=== PATIENT | male | born 1935 | race Caucasian/White ===

== ENCOUNTER 2018-12-02 08:07 | Observation (INO) ==
[2018-12-02] MEDS ORDERED: LOVENOX SUBQ SCH (08:30)
[2018-12-02 09:28] LABS: BASO# 0.02 X1000 (0.0-0.2); BASO% 0.4 % (0.0-0.8); EOS# 0.12 X1000 (0.0-0.7); EOS% 2.7 % (0.0-10.0); HEMATOCRIT 37.2 % (42.0-52.0); HEMOGLOBIN 12.4 g/dL (14.0-18.0); IMM GRAN# 0.02 X1000 (0.0-0.04); IMM GRAN% 0.4 % (0.0-0.5); LYMPH# 1.09 X1000 (1.2-3.4); LYMPH% 24.5 % (20.5-51.1); MCH 31.8 PG (27-31); MCHC 33.3 g/dL (33-37); MCV 95.4 FL (81-99); MONO# 0.36 X1000 (0.11-0.59); MONO% 8.1 % (1.7-9.3); MPV 10.2 FL (7.4-10.4); NEUT# 2.84 X1000 (1.4-6.5); NEUT% 63.9 % (42.2-75.2); PLT 194 X1000 (130-400); RDW 13.4 % (11.5-14.5); WBC 4.45 X1000 (4.8-10.8)
[2018-12-02 09:52] LABS: AGAP 11; BUN 11 mg/dL (8-22); CALCIUM 8.3 mg/dL (8.8-10.2); CHLORIDE 100 mmol/L (98-107); COSMO 281; CREATININE 0.8 mg/dL (0.7-1.2); ESTIMATED GFR > 60; GLUCOSE 178 mg/dL (70-104); MAGNESIUM 1.7 mg/dL (1.5-2.7); SODIUM 139 mmol/L (136-145); TCO2 28 mmol/L (25-35)
[2018-12-02 10:48] LABS: SED RATE 10 mm/hr (0-15)
[2018-12-02] MEDS: GLUCOPHAGE PO SCH ×2 (12:48→23:19)
[2018-12-02] MEDS: NAMENDA PO SCH ×2 (12:49→23:19)
[2018-12-02] MEDS: VASOTEC PO SCH (13:12)
[2018-12-02] MEDS: HYDROCHLOROTHIAZIDE PO SCH (13:12)
[2018-12-02] MEDS: ZOLOFT PO SCH (13:12)
--- NOTE | 2018-12-02 14:39 | CONSULTATION ---
DATE OF CONSULTATION: 12/02/2018 Mr. Monk is 82 years old and he has progressive cognitive impairment, gait difficulty, falling. I saw Mr. Monk once in my office 10/21/2014. He had significant cognitive impairment then with history that he had not tolerated donepezil because of nightmares. We started him on rivastigmine patch and he seemed to tolerate the 4.6 mg daily dose. He was lost to my followup shortly after that. Today, reports not sure when or why rivastigmine was stopped. Memantine was added and does not recall how long he has been taking memantine. I believe his memantine dose has been 10 mg b.i.d. Memory has continued to fail. There has been gradual downhill course with cognitive function over the last several years. He has chronic gait difficulty which has been worse and worse to the point reports he can hardly walk at all and looks like he is about to fall all the time. He has a little bit of urinary dribbling, but not ciarra incontinence. He fell a few months ago. There was minor head injury but no altered consciousness then. Workup then included CT scan 09/30/2018 without contrast showing evidence of scalp contusion and ventriculomegaly. The ventriculomegaly is a little bit more prominent than was seen on the last CT scan done 2012. On my view, comparing the 2012 and 2018 scans, the subcortical atrophy may be a little bit more prominent than the cortical atrophy but both have progressed significantly over that 6 year time frame. Computer record shows brain MRI with and without contrast 08/28/2012 showing ventriculomegaly but no subependymal CSF. Computer record this admission shows home medicines have been enalapril/hydrochlorothiazide 10/25 daily, memantine uncertain dose probably 10 mg b.i.d., metformin 500 mg b.i.d., sertraline 100 mg daily. Those medicines have been continued here. He has been afebrile. Heart rate is mid 50s. Blood pressures have been 160s/60s-80s. Lab work shows WBC 4450, mild anemia, platelet count 194,000, blood sugar 178, calcium 8.3, nothing else abnormal on the chemistry profile. On exam, Mr. Monk is awake, alert, attentive. He answered questions appropriately but sometimes incorrectly. He could not name the president, the month or the day of the week. He did identify the hospital by name correctly. He could not tell me anything on his lunch plate which was in front of him until just a few seconds before I asked. I did not test his cognitive function further. Head and neck are unremarkable. Visual martinez are full tested grossly by confrontational finger counting. Extraocular movements are good laterally and slightly diminished in upgaze typical for age. Facial motility is diminished bilaterally but symmetric. Gag is intact. Tongue is midline. Hearing is fair. Shoulder shrug is equal. Strength is normal in the arms and legs. He did well on [id number] testing bilaterally. Tone is symmetric in the limbs. I did not test his gait. Plantar response is silent bilaterally. IMPRESSION: Longstanding cognitive impairment with typical progression, more recent unsteady gait also progressing, minimal bladder control problems. These features are consistent with normal pressure hydrocephalus, but the chronology is not typical. The imaging shows ventriculomegaly with some progression over these several years, but the cortical atrophy appears to be progressing along with the subcortical atrophy. There was not subependymal CSF noted on prior MRI. I discussed large volume CSF drainage via LP with patient and . I don't think that is urgent. We might learn more by performing this as an outpatient so that we can better compare his level of function prior to LP and after LP. At this point, I suspect he does not have normal- pressure hydrocephalus. I would continue memantine. If he did not have significant adverse effect with prior trial, I would consider carefully trying cholinesterase inhibitor again. I encouraged him not to be up without help. I do not have any other suggestion right now. Thanks for asking Neurology to see Mr. Monk. cc: MD Esdras Aparicio III, MD MTDD
[2018-12-02 17:35] LABS: URINE SOURCE CLEAN CATCH
[2018-12-02 17:39] LABS: BILIRUBIN URINE NEGATIVE (NEGATIVE); BLOOD URINE NEGATIVE (NEGATIVE); COLOR YELLOW; GLUCOSE URINE NEGATIVE (NEGATIVE); KETONE URINE NEGATIVE (NEGATIVE); LEUKOCYTES URINE NEGATIVE (NEGATIVE); NITRITE URINE NEGATIVE (NEGATIVE); PH URINE 7.5; PROTEIN URINE NEGATIVE (NEGATIVE); SP GRAVITY URINE 1.017; TURBIDITY URINE CLEAR (CLEAR); UR EPITHELIAL CELLS <10 /HPF (<10); URINE BACTERIA NEGATIVE /HPF; URINE RBC <10 /HPF (<10); URINE WBC <10 /HPF (<10); UROBILINOGEN URINE NORMAL (NORMAL)
--- NOTE | 2018-12-02 22:33 | HISTORY AND PHYSICAL ---
CHIEF COMPLAINT: 1. Worsening of memory. 2. Frequent falls. 3. Losing balance. 4. Incontinence of urine. HISTORY OF PRESENT ILLNESS: He is an 82-year-old white gentleman initially presented to my office on 10/27/2018. In between, he was seen in the emergency room, also walk-in clinic with losing balance, not able to do any activities of daily living. He has progression of dementia as well. Apparently, the patient was seen in the emergency room on 09/30/2018 as well as several times in the walk-in clinic. He had multiple falls, having shoulder injury, back injury. Prior to this, a year ago he was driving on his own, going to breakfast with his friends, and now he is pretty much confined to the house. 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 CT scan showed enlarged ventricle. At this time, whether it is ex-vacuo from the atrophic changes versus normal-pressure hydrocephalus. He used to see Dr. Beltran. He had some type of TIA symptoms back in 2012. Basically, I referred as an outpatient to see Dr. Joe as well as a surgical neurosurgical consult for the evaluation of normal pressure hydrocephalus. I did discuss with the to prevent the fall precautions. She called several times, the appointments were delayed. He is not able to walk and she keeps on insisting to be admitted and transferred to [facility]. The patient was seen in my office on November 24. We did perform the mini-mental status exam, it is 03/28. The patient stopped taking the Exelon patch that was prescribed by Dr. Joe in the past. Any how, we will also repeat MRI of the brain and will seek for Dr. Joe while he was in the hospital. PAST MEDICAL HISTORY: Dementia, worsening, type 2 diabetes, hypertension, acid reflux disease, depression, abnormal CT with enlarged ventricle. MEDICATIONS: Vaseretic 10-25 daily, used to be on Namenda 10 p.o. b.i.d., metformin 500 b.i.d., Prilosec 20 daily, Zoloft 100 daily. ALLERGIES: Not known. SOCIAL HISTORY: , 3 kids. Living in [place]. No smoking. No alcohol. No drug abuse. FAMILY HISTORY: Father of cancer, not known. Mom of heart attack. REVIEW OF SYSTEMS: Poor historian. Denies of any headache vision problem. No chest pain, shortness of breath. No GI symptoms, no symptoms. No swelling of legs. PHYSICAL EXAMINATION: VITAL SIGNS: On exam, temperature is 97 degrees, pulse 55, blood pressure 163/82. HEENT: Atraumatic, normocephalic. Pupils equal, react to light. TMs are normal. Nose and throat within normal limits. NECK: Supple. No lymphadenopathy. CHEST: Bilateral air entry. CARDIOVASCULAR: Heart sounds are regular. ABDOMEN: Belly is soft, nontender. Good bowel sounds. EXTREMITIES: No peripheral edema, cyanosis. NEUROLOGICAL: No obvious neurological deficits. INVESTIGATIONS: White cell count 4.4, hematocrit 37, platelets 194,000. Sodium 139, potassium 4.0, chloride 100, BUN 11, creatinine 0.8. Glucose 178, calcium 8.3. Magnesium, B12, vitamin D normal. Urinalysis is clear. On 09/30/2018, shoulder x-ray, advanced DJD changes, no acute injury. Hip and pelvic x-rays, no acute bony injury. C-spine is severe facet arthropathy, multilevel foraminal stenosis, spinal stenosis at C5-C6, C6-C7. CT head, small frontal scalp contusion, increasing ventricular size, possible normal-pressure hydrocephalus. ASSESSMENT AND PLAN: 1. An 82-year-old white gentleman presented to the office for the last 2 months, worsening of activities of daily living, instrumental activities, frequent falls, and worsening of memory problem, and also incontinence, losing the balance. CT scan abnormal. As I said, I do not have his previous reports. Entertain the diagnosis rule out normal pressure hydrocephalus. Plan is repeat MRI of the brain, PT consult. Neurology consult with Dr. Joe. 2. Progressive dementia. Mini-mental exam performed, it was 03/28. Started on Namenda 10 p.o. b.i.d. 3. Type 2 diabetes, on metformin. 4. Hypertension, on Vaseretic / daily. 5. Acid reflux disease, on Prilosec. 6. Depression, on Zoloft. 7. Hard of hearing, on hearing aids. HEALTH MAINTENANCE: Last physical exam in 2019. Discussed the plan of care with the . Will go ahead and repeat MRI, compare this MRI in 2013 and consider lumbar puncture. Obviously, I did not realize the patient has already had an appointment with Dr. Oliveira next Saturday, and will follow up. cc: MD RICCO Tamayo
[2018-12-03] MEDS: GLUCOPHAGE PO SCH (08:30)
[2018-12-03] MEDS: ZOLOFT PO SCH (08:30)
[2018-12-03] MEDS: HYDROCHLOROTHIAZIDE PO SCH (08:30)
[2018-12-03] MEDS: NAMENDA PO SCH (08:30)
[2018-12-03] MEDS: VASOTEC PO SCH (08:30)
[2018-12-03] MEDS ORDERED: NAROPIN 0.5% ONE (09:58)
--- NOTE | 2018-12-03 12:01 | Diag Imaging Result Doc PS360 ---
EXAM: MRI BRAIN W/O CONTRAST INDICATION: NPH COMPARISON: 08/28/2012 FINDINGS: There is no evidence of acute infarct. There is ventriculomegaly that appears to have worsened slightly since the previous study. There is T2/FLAIR signal hyperintensity in the periventricular white matter. It is only slightly more prominent than the previous study. It is difficult to distinguish between advancing white matter microangiopathy and subependymal edema. There is no discrete intracranial mass, mass effect, or intracranial hemorrhage. There are a few small mucus retention cysts at the floors of the maxillary sinuses. Surrounding soft tissues and bony structures are essentially unremarkable, otherwise. IMPRESSION: Ventriculomegaly and periventricular T2/FLAIR signal hyperintensity slightly worse than the previous study in 2012. Please see above discussion. Electronically signed by Romulo Roa 12/03/2018 11:59 AM
--- NOTE | 2018-12-03 13:20 | Diag Imaging Result Doc PS360 ---
EXAM: LUMBAR PUNCTURE W/ FLUOROSCOPY GUIDANCE INDICATION: AMS TECHNIQUE: COMPARISON: None. FINDINGS: Risks, benefits, and alternatives were discussed with the patient's by proxy given the patient's reported dementia. The patient was placed in a prone position and was prepped and draped in sterile fashion. Using fluoroscopy guidance, a 20-gauge spinal needle was inserted into the thecal sac at the L3-4 level. 50 mL of clear CSF was then collected according to normal pressure hydrocephalus therapeutic protocol. There were no known complications. IMPRESSION: Clinically successful high volume NPH protocol lumbar puncture. Electronically signed by Romulo Roa 12/03/2018 1:17 PM
[2018-12-03 14:06] LABS: GLUCOSE CSF 78 mg/dL (39-75); PROTEIN CSF 71.1 mg/dL (15-45)
[2018-12-03 14:08] LABS: APPEARANCE CLEAR; RBC BF 6 /cumm; WBC BF 0 /cumm
--- NOTE | 2018-12-03 14:46 | PROGRESS NOTE ---
DATE: 12/03/2018 Mr. Monk had lumbar puncture in Radiology with large-volume CSF drainage. He tolerated that well. His brain MRI today shows ventriculomegaly, a little bit more prominent than on prior scan done in 2013. There is minimal periventricular signal not certain to be subependymal CSF. On exam 90 minutes after LP, he is awake, alert, a little bit brighter than yesterday. He was very apractic with his attempts at standing. His gait remains very apractic and unsteady. He would have fallen if I had not been nearby to grab him. There are some wide based features, also. No focal features to gait difficulty. I discussed my impression at length with at the bedside earlier this morning while he was in MRI. Discussed further now with patient, and daughter at great length the frequent difficulty encountered with making certain diagnosis when normal-pressure hydrocephalus is a consideration. His imaging findings over a period of several years, clinical course, features on exam are consistent with a degenerative LAST PULLER process, including Alzheimer disease or other dementia, and the ventriculomegaly may be ex vacuo related to atrophy associated with the degenerative LAST PULLER process. I believe that he has Neurosurgery evaluation scheduled for next week, and longer duration lumbar CSF drainage might be considered then. I do not have any new suggestions today. I hope Mr. Monk will do well. I will be glad to see him again, if needed. cc: MD Esdras Aparicio III, MD [facility] CENTERKathleen
[2018-12-03 16:07] VITALS: BP 176/89
--- NOTE | 2018-12-04 10:09 | DISCHARGE SUMMARY ---
ADMISSION DATE: 12/02/2018 DISCHARGE DATE: 12/03/2018 DISCHARGING DIAGNOSIS: Altered mental status with worsening of dementia, frequent falls, and CT/MRI showed worsening of ventriculomegaly, questionable normal-pressure hydrocephalus. SECONDARY DIAGNOSES: 1. Type 2 diabetes. 2. Hypertension. 3. Acid reflux disease. 4. Depression. 5. Dementia. Mini-mental score 11/30. CONSULTS: Dr. Joe. PROCEDURES: MRI of the brain, ventriculomegaly worsening from the previous study, lumbar puncture, removal of 50 mL of clear CSF. BRIEF HISTORY: Please see the H and P that was done on 12/02/2018. In brief, he is an 82-year- old white gentleman who was not seen for a while, progressively worsening dementia, decreased ADLs and instrumental activities, recurrent falls, and incontinence of urine. He has a chronic ventriculomegaly since 2012. He was seen before by Dr. Joe. Anyhow, he is worsening. Based on the clinical picture, suspicious for NPH. HOSPITAL COURSE: The patient was seen by Dr. Joe, and at this time, it is not very clear whether it is due to NPH versus ex vacuo effect from atrophic changes. LP was done, removed 50 mL of CSF. The patient's is anxious to take him home. LABORATORY DATA: CBC is normal. SMA-7 is normal. B12 and vitamin D were normal. Urinalysis is clear. CSF: Glucose 78, total protein slightly high. Cultures are pending. DISCHARGE INSTRUCTIONS: Vaseretic 10/25 daily, Zoloft 100 daily, metformin 500 b.i.d., Namenda 10 p.o. b.i.d., B12 at 5000 mcg sublingual daily, vitamin D3 at 800 units daily. Follow up with my office, as well as Dr. Oliveira next Saturday, and follow up clinically whether he is improving the symptoms or not. cc: MD Nithya Tamayo III, MD
== END 2018-12-03 20:42 | disposition home or self-care (01) ==
LOC: INTOOBSV 08:07 → DIRADM 08:07 → 4N 08:18
PROVIDERS: ADMIT Internal Medicine; ATTEND Internal Medicine